=== PATIENT | male | born 1965 | race Caucasian/White ===

== ENCOUNTER 2017-06-02 12:45 | Emergency (ER) | payer MEDICARE, OTHER ==
[~2017-06-02] VITALS: Ht 162.6 cm; Wt 131.5 kg
[2017-06-02 12:52] VITALS: BP 153/98
[2017-06-02] MEDS ORDERED: PROMETHAZINE HCL 25 MG/ML 1ML IM ONE (14:45)
[2017-06-02] MEDS ORDERED: MORPHINE SULFATE 10 MG/ML INJ 1ML SDV IM ONE (14:45)
== END 2017-06-02 15:28 | disposition home or self-care (01) ==
LOC: ER 12:55
DX: M50.30 Other cervical disc degeneration, unspecified cervical region (principal); G89.29 Other chronic pain; Z88.0 Allergy status to penicillin
CPT/HCPCS: 72040; 93005; 96372; 99284; J2270; J2550